=== PATIENT | female | born 1995 | race American Indian/Alaskan Native ===

== ENCOUNTER 2016-12-24 04:42 | Emergency (ER) | payer OTHER ==
[2016-12-24 05:45] LABS: Urine Drugs of Abuse Note Disclamer
[2016-12-24 05:58] LABS: Basophils % (Auto) 0.6 % (0.0-1.8); Eosinophils % (Auto) 3.3 % (0.0-4.3); Hematocrit 35.8 % (30.3-42.9); Hemoglobin 11.7 gm/dl (10.1-14.3); Mean Corpuscular HGB Conc 33 % (30-34); Mean Corpuscular Hemoglobin 27 pg (28-32); Mean Corpuscular Volume 84 fl (79-97); Platelet Count 186 K/mm3 (140-440); Red Blood Count 4.28 M/mm3 (3.65-5.03); Red Cell Distribution Width 14.5 % (13.2-15.2); White Blood Count 4.5 K/mm3 (4.5-11.0)
[2016-12-24 06:11] LABS: Anion Gap 14 mmol/L; Blood Urea Nitrogen 21 mg/dL (7-17); Calcium 9.5 mg/dL (8.4-10.2); Carbon Dioxide 27 mmol/L (22-30); Chloride 103.1 mmol/L (98-107); Glucose 91 mg/dL (65-100); Potassium 3.6 mmol/L (3.6-5.0); Sodium 140 mmol/L (137-145)
[2016-12-24 06:13] LABS: Bacteria,Urine 2+ /HPF (Negative); Bilirubin,Urine NEG (Negative); Blood,Urine NEG (Negative); Ketones,Urine NEG (Negative); Leukocyte Esterase,Urine NEG (Negative); Nitrite,Urine NEG (Negative); Protein,Urine <15 mg/dL mg/dL (Negative); Urobilinogen,Urine < 2.0 mg/dL (<2.0)
[2016-12-24] MEDS ORDERED: NACL 0.9% 1000 ML 1,000 ML IV ONE (08:17)
[2016-12-24 08:41] VITALS: BP 95/57
--- NOTE | 2016-12-24 09:08 | Emergency Department Report ---
ED Chest Pain HPI - General Chief Complaint: Chest Pain Stated Complaint: CHEST PAIN Time Seen by Provider: 12/24/16 09:02 Source: patient Mode of arrival: Carried (Peds) Limitations: No Limitations - History of Present Illness Initial Comments: This is a 21-year-old female well-nourished with nontoxic or ill in appearance but complains of chest pain status post smoking cigarettes and marijuana this morning at 0200. Patient stated she came around 30 minutes later developed a chest pain. Patient stated she was concerned and was was brought into the hospital. Patient describes chest pain at 0200 as aching with a level of 4/10. Patient currently states chest pain has subsided to a 1 out of 10. Patient states describes chest pain currently as slightly aching that is intermittent. Patient denies any fever, chills, stiff neck, nausea, vomiting, numbness, tingling, shortness of breath, difficulty breathing, diaphoresis, dizziness, blurry vision. Patient denies feelings of tightness in the chest. Patient denies radiation of chest pain. Patient denies any allergies. Denies past medical history. Patient denies any recent surgeries. Denies respiratory use. Denies calf tenderness or pain. MD Complaint: chest pain -: Gradual, days(s) (1) Onset: associated with drug use Pain Location: substernal Pain Radiation: none Severity: mild Severity scale (0 -10): 1 Quality: aching Consistency: intermittent Improves With: nothing Worsens With: nothing re: denies: nausea, vomting, diaphoresis, dyspnea, sense of impending doom Other Symptoms: denies: cough, fever, syncope, rash, acid taste in mouth, leg swelling, palpitations, burping Treatments Prior to Arrival: none Aspirin use within the Past 7 Days: (0) No - Related Data On Oral Contraceptives: No (as per patient) Home Medications Medication Instructions Recorded Confirmed Last Taken No Known Home Medications [No 12/24/16 12/24/16 Unknown Reported Home Medications] Allergies Allergy/AdvReac Type Severity Reaction Status Date / Time kiwi Allergy Hives Verified 12/24/16 05:16 Heart Score - HEART Score History: Slightly suspicious EKG: Non-specific Age: < 45 Risk factors: No known risk factors Troponin: < normal limit HEART Score: 1 ED Review of Systems ROS: Stated complaint: CHEST PAIN Other details as noted in HPI Constitutional: denies: chills, fever Eyes: denies: eye pain, eye discharge, vision change ENT: denies: ear pain, throat pain Respiratory: denies: cough, shortness of breath, wheezing Cardiovascular: chest pain (aching). denies: palpitations, dyspnea on exertion , orthopnea, edema, syncope, paroxysmal nocturnal dyspnea Endocrine: no symptoms reported Gastrointestinal: denies: abdominal pain, nausea, diarrhea Genitourinary: denies: urgency, dysuria, discharge Musculoskeletal: denies: back pain, joint swelling, arthralgia Skin: denies: rash, lesions Neurological: denies: headache, weakness, paresthesias Psychiatric: denies: anxiety, depression Hematological/Lymphatic: denies: easy bleeding, easy bruising ED Past Medical Hx - Past Medical History Previous Medical History?: No - Surgical History Past Surgical History?: No - Social History Smoking Status: Current Every Day Smoker Substance Use Type: Marijuana - Medications Home Medications: Home Medications Medication Instructions Recorded Confirmed Last Taken Type No Known Home Medications [No 12/24/16 12/24/16 Unknown History Reported Home Medications] ED Physical Exam - General Limitations: No Limitations General appearance: alert, in no apparent distress - Head Head exam: Present: atraumatic, normocephalic, normal inspection - Eye Eye exam: Present: normal appearance, PERRL, EOMI. Absent: scleral icterus, conjunctival injection, nystagmus, periorbital swelling, periorbital tenderness Pupils: Present: normal accommodation - ENT ENT exam: Present: normal exam, normal orophraynx, mucous membranes moist, TM's normal bilaterally, normal external ear exam - Neck Neck exam: Present: normal inspection, full ROM. Absent: tenderness, meningismus, lymphadenopathy, thyromegaly - Respiratory Respiratory exam: Present: normal lung sounds bilaterally. Absent: respiratory distress, wheezes, rales, rhonchi, stridor - Cardiovascular Cardiovascular Exam: Present: regular rate, normal rhythm, normal heart sounds. Absent: bradycardia, tachycardia, irregular rhythm, systolic murmur, diastolic murmur, rubs, gallop - GI/Abdominal GI/Abdominal exam: Present: soft, normal bowel sounds. Absent: distended, tenderness, guarding, rebound, rigid - Rectal Rectal exam: Present: deferred - Extremities Exam Extremities exam: Present: normal inspection, full ROM, normal capillary refill. Absent: tenderness, pedal edema, joint swelling, calf tenderness - Back Exam Back exam: Present: normal inspection, full ROM. Absent: tenderness, CVA tenderness (R), CVA tenderness (L), muscle spasm, paraspinal tenderness, vertebral tenderness, rash noted - Neurological Exam Neurological exam: Present: alert, oriented X3, CN II-XII intact, normal gait - Psychiatric Psychiatric exam: Present: normal affect, normal mood - Skin Skin exam: Present: warm, dry, intact, normal color. Absent: rash - Other Other exam information: Denies tenderness to palpitation of the chest. No tenderness to palpation of the midsternal. Nonreproducible. ED Course Vital Signs 12/24/16 12/24/16 05:04 08:40 Temperature 99.2 F Pulse Rate 74 81 Respiratory 12 16 Rate Blood Pressure 101/63 Blood Pressure 101/63 95/57 [Left] O2 Sat by Pulse 100 99 Oximetry - Reevaluation(s) Reevaluation #1: 12/24/16 09:11 Patient is eating with father at bedside. Patient is not in acute distress noted. Reevaluation #2: 12/24/16 09:53 Patient is sitting and watching TV. no signs of distress noted. Reevaluation #3: 12/24/16 09:54 Patient and father has been informed about importance of f/u with tool and die repair in 24 hours for abnormal EKG. - Consultations Consultation #1: 12/24/16 09:55 Dr. Brown has been consulted about patient and lab/EKG findings. Agrees to d/c plan of care. SAL score - Sal Score Age > 65: (0) No Aspirin use within the Past 7 Days: (0) No 3 or more CAD Risk Factors: (0) No 2 or more Angina events in past 24 hrs: (0) No Known CAD with more than 50% Stenosis: (0) No Elevated Cardiac Markers: (0) No ST Deviation Greater than 0.5mm: (0) No SAL Score: 0 ED Medical Decision Making - Lab Data Result diagrams: 12/24/16 05:37 12/24/16 05:37 - Medical Decision Making Ed course: This is a 21-year-old female that presents chest pain times one day. 1- EKG, CBC, BMP, troponin, test, and drug panel has been obtained. Positive for marjuana 2- a second Troponin and EKG has been obtained as well with no chagnes. 3- Patient was instructed to f/u with a tool and die repair/primary care doctor and 24 hours. 4- at time time of discharge, the patient does not seem toxic or ill in appearance. No acute signs of distress noted. Patient agrees to discharge treatment plan of care. No further questions noted by the patient. Critical care attestation.: If time is entered above; I have spent that time in minutes in the direct care of this critically ill patient, excluding procedure time. ED Disposition Clinical Impression: Costochondritis, Abnormal EKG Chest pain Qualifiers: Chest pain type: unspecified Qualified Code(s): R07.9 - Chest pain, unspecified Disposition: TO HOME OR SELFCARE Is pt being admited?: No Does the pt Need Aspirin: No Condition: Stable Instructions: Chest Pain (ED), Costochondritis (ED) Additional Instructions: Follow-up with her tool and die repair last primary care doctor in 24 hours or if symptoms of chest pain, shortness of breath, stiff neck, fever, chills, or difficulty breathing return back to emergency room as soon as possible. Referrals: PRIMARY CAREMD [Primary Care Provider] - 3-5 Days [facility] [Outside] - 3-5 Days [facility] [Outside] - 3-5 Days JORGE EARLY JR, MD [Staff Physician] - 3-5 Days STIVEN SCHAFFER MD [Staff Physician] - 24 Hours Forms: Work/School Release Form(ED)
[2016-12-24] MEDS ORDERED: TORADOL IV ONE (09:13)
--- NOTE | 2016-12-24 09:22 | XRay Report ---
FINAL REPORT PROCEDURE: XR CHEST ROUTINE 2V TECHNIQUE: PA and lateral chest radiographs were obtained. CPT 54124 HISTORY: cp COMPARISON: No prior studies are available for comparison. FINDINGS: Heart: Normal. Mediastinum/Vessels: Normal. Lungs/Pleural space: Normal. Bony thorax: No acute osseous abnormality. Other: IMPRESSION: Normal examination.
== END 2016-12-24 11:25 | disposition home or self-care (01) ==
LOC: ED 04:42
DX: M94.0 Chondrocostal junction syndrome [Tietze] (principal); R94.31 Abnormal electrocardiogram [ECG] [EKG]; F12.10 Cannabis abuse, uncomplicated; F17.200 Nicotine dependence, unspecified, uncomplicated; Z91.018 Allergy to other foods
CPT/HCPCS: 36415; 71020; 80048; 80307; 81001; 81025; 84484; 85025; 93005; 93010; 96360; 99285; J7030

== ENCOUNTER 2019-02-16 09:14 | Emergency (ER) | payer SELFPAY ==
[2019-02-16 09:22] VITALS: BP 117/75
--- NOTE | 2019-02-16 09:41 | Emergency Department Report ---
ED Anxiety HPI - General Chief Complaint: Anxiety Stated Complaint: ANXIOUS Time Seen by Provider: 02/16/19 09:31 Source: patient Mode of arrival: Ambulatory Limitations: No Limitations - History of Present Illness Initial Comments: Patient is a 23-year-old female that presented to emergency room with complaints of anxiety. Patient states last night she took ecstasy at 2 AM and again having anxiety. Patient states she did not do any other drugs. Patient denies cocaine use. Patient states also having mood swings. Patient denies suicidal or homici tyson ideations. Patient denies hallucinations. pt on cycle now,. MD Complaint: anxiety -: Sudden Place: home Previous History of Same: No Severity: severe Quality: constant Provoking factors: other Improves With: rest Worsens With: thinking about event Associated symptoms: denies other symptoms. denies: chest pain, shortness of breath, palpitations, diaphoresis, confusion, cough, fever/chills, headaches, anorexia, malaise, nausea/vomiting, rash, seizure, syncope, weakness - Related Data Home Medications: Previous Rx's Medication Instructions Recorded Last Taken Type Sulfamethoxazole/Trimethoprim 1 each PO BID 10 Days #20 tablet 02/16/19 Unknown Rx [Bactrim DS TAB] Allergies/Adverse Reactions: Allergies Allergy/AdvReac Type Severity Reaction Status Date / Time kiwi Allergy Hives Verified 12/24/16 05:16 ED Review of Systems ROS: Stated complaint: ANXIOUS Other details as noted in HPI Constitutional: denies: chills, fever Eyes: denies: eye pain, eye discharge, vision change ENT: denies: ear pain, throat pain Respiratory: denies: cough, shortness of breath, wheezing Cardiovascular: denies: chest pain, palpitations Endocrine: no symptoms reported Gastrointestinal: denies: abdominal pain, nausea, diarrhea Genitourinary: denies: urgency, dysuria, discharge Musculoskeletal: denies: back pain, joint swelling, arthralgia Skin: denies: rash, lesions Neurological: denies: headache, weakness, paresthesias Psychiatric: anxiety. denies: depression Hematological/Lymphatic: denies: easy bleeding, easy bruising ED Past Medical Hx - Past Medical History Previous Medical History?: No - Surgical History Past Surgical History?: No - Family History Family history: no significant - Social History Smoking Status: Current Every Day Smoker Substance Use Type: None, Marijuana - Medications Home Medications: Home Medications Medication Instructions Recorded Confirmed Last Taken Type Sulfamethoxazole/Trimethoprim 1 each PO BID 10 Days #20 tablet 02/16/19 Unknown Rx [Bactrim DS TAB] ED Physical Exam - General Limitations: No Limitations General appearance: alert, in no apparent distress - Head Head exam: Present: atraumatic, normocephalic - Eye Eye exam: Present: normal appearance, PERRL, EOMI Pupils: Present: normal accommodation - ENT ENT exam: Present: mucous membranes moist - Neck Neck exam: Present: normal inspection - Respiratory Respiratory exam: Present: normal lung sounds bilaterally. Absent: respiratory distress, wheezes, rales - Cardiovascular Cardiovascular Exam: Present: regular rate, normal rhythm. Absent: systolic murmur, diastolic murmur, rubs, gallop - GI/Abdominal GI/Abdominal exam: Present: soft, normal bowel sounds. Absent: distended, tenderness, guarding - Rectal Rectal exam: Present: deferred - Extremities Exam Extremities exam: Present: normal inspection, full ROM - Back Exam Back exam: Present: normal inspection, full ROM - Neurological Exam Neurological exam: Present: alert, oriented X3, CN II-XII intact, normal gait. Absent: motor sensory deficit - Psychiatric Psychiatric exam: Present: normal affect, normal mood - Skin Skin exam: Present: warm, dry, intact, normal color. Absent: rash ED Course Vital Signs 02/16/19 02/16/19 02/16/19 09:20 09:41 11:35 Temperature 98.3 F Pulse Rate 120 H 90 76 Respiratory 16 Rate Blood Pressure 117/75 O2 Sat by Pulse 100 98 Oximetry - Reevaluation(s) Reevaluation #1: Initial evaluation done and medical screening done, no emergency medical condition noted. Patient will have labs done 02/16/19 09:48 Reevaluation #2: Discussed all results with patient. I discussed plan of care with patient. Patient agrees with plan of care. Patient will be discharged home. Patient stable for discharge. Patient given discharge instructions. Patient voiced understanding of discharge instructions 02/16/19 11:05 ED Medical Decision Making - Lab Data Result diagrams: 02/16/19 10:03 02/16/19 10:03 - Medical Decision Making pt is a 23-year-old female that presents emergency room with acute anxiety. Patient appears to be having a drug reaction due to a illicit drugs she took last night. Patient's labs unremarkable except for a UTI. TSH is normal. Blood count normal. Chemistry normal. Patient stable for discharge. Patient will be discharged home. Patient given antibiotic prescription - Differential Diagnosis anxiety. Drug reaction. Critical care attestation.: If time is entered above; I have spent that time in minutes in the direct care of this critically ill patient, excluding procedure time. ED Disposition Clinical Impression: Anxiety Drug reaction Qualifiers: Encounter type: initial encounter Qualified Code(s): T50.905A - Adverse effect of unspecified drugs, medicaments and biological substances, initial encounter UTI (urinary tract infection) Qualifiers: Urinary tract infection type: acute cystitis Hematuria presence: with hematuria Qualified Code(s): N30.01 - Acute cystitis with hematuria Disposition: TO HOME OR SELFCARE Is pt being admited?: No Does the pt Need Aspirin: No Condition: Stable Instructions: Urinary Tract Infection in Women (ED), Polysubstance Abuse (ED), Anxiety (ED) Additional Instructions: Patient follow up with primary care in 2-3 days. Patient to return to ER if condition worsens. Patient take medicines as directed. Patient to avoid drug use. Patient increase water. Patient to rest. Prescriptions: Sulfamethoxazole/Trimethoprim [Bactrim DS TAB] 1 each PO BID 10 Days #20 tablet Referrals: PRIMARY CARE, [Primary Care Provider] - 2-3 Days Time of Disposition: 11:08
[2019-02-16 10:14] LABS: Hematocrit 41.2 % (30.3-42.9); Hemoglobin 13.7 gm/dl (10.1-14.3); Mean Corpuscular HGB Conc 33 % (30-34); Mean Corpuscular Volume 87 fl (79-97); Platelet Count 218 K/mm3 (140-440); Red Blood Count 4.72 M/mm3 (3.65-5.03); Red Cell Distribution Width 14.2 % (13.2-15.2)
[2019-02-16 10:25] LABS: Bilirubin,Urine NEG (Negative); Blood,Urine LG (Negative); Color,Urine Straw (Yellow); Mucus,Urine FEW /HPF; Protein,Urine <15 mg/dL mg/dL (Negative); Urobilinogen,Urine < 2.0 mg/dL (<2.0)
[2019-02-16 10:34] LABS: Benzodiazepines Screen,Urine PRESUMPTIVE NEGATIVE; Cocaine Screen,Urine PRESUMPTIVE NEGATIVE; Methadone Screen,Urine PRESUMPTIVE NEGATIVE; Opiate Screen,Urine PRESUMPTIVE NEGATIVE
[2019-02-16 10:39] LABS: Alanine Aminotransferase 18 units/L (7-56); Albumin 4.6 g/dL (3.9-5); BUN/Creatinine Ratio 19; Blood Urea Nitrogen 15 mg/dL (7-17); Calcium 9.9 mg/dL (8.4-10.2); Hemolysis Index 21
[2019-02-16 10:42] LABS: HCG Qualitative,Urine Negative (Negative)
[2019-02-16 10:49] LABS: Amphetamine Screen,Urine PRESUMPTIVE POSITIVE; Cannabinoid Screen,Urine PRESUMPTIVE POSITIVE
== END 2019-02-16 11:42 | disposition home or self-care (01) ==
LOC: ED 09:14
DX: T50.905A Adverse effect of unspecified drugs, medicaments and biological substances, initial encounter (principal); F41.9 Anxiety disorder, unspecified; N39.0 Urinary tract infection, site not specified; F17.200 Nicotine dependence, unspecified, uncomplicated; F12.10 Cannabis abuse, uncomplicated; Z91.018 Allergy to other foods; Y92.89 Other specified places as the place of occurrence of the external cause
CPT/HCPCS: 36415; 80053; 80307; 81001; 81025; 84443; 85027

== ENCOUNTER 2019-04-01 19:06 | Emergency (ER) | payer SELFPAY ==
--- NOTE | 2019-04-01 19:47 | Event Note ---
ED Screening Note Date of service: 04/01/19 Time: 19:46 ED Screening Note: 23 y o f presents with cough and congestion x 4 days lmp: on bC This initial assessment/diagnostic orders/clinical plan/treatment(s) is/are subject to change based on patients health status, clinical progression and re-assessment by fellow clinical providers in the ED. Further treatment and workup at subsequent clinical providers discretion. Patient/guardian urged not to elope from the ED as their condition may be serious if not clinically assessed and managed. Initial orders include: cxr
[2019-04-01 19:48] VITALS: BP 102/70
--- NOTE | 2019-04-01 20:20 | XRay Report ---
CHEST PA AND LATERAL VIEWS INDICATION: MAIN: cough cough for 3-4 days. Occasionally productive. burning to throat intially. Nonlabored. MAEW . Denies fever.. COMPARISON: 11/01/2018 FINDINGS: Support devices: None Heart: Stable. Lungs/Pleura: No acute pulmonary or pleural findings. IMPRESSION: 1. No significant change. Signer Name: Tico Christianson MD Signed: 04/01/2019 8:16 PM Workstation Name: [id number]
--- NOTE | 2019-04-01 21:19 | Emergency Department Report ---
- General Chief Complaint: Upper Respiratory Infection Stated Complaint: FLU LIKE SYM Time Seen by Provider: 04/01/19 19:46 Source: patient Mode of arrival: Ambulatory Limitations: No Limitations - History of Present Illness Initial Comments: 23-year-old female presents to ED with 4 day history of cough. Patient also reports a runny nose. Patient states she is concerned she may have pneumonia to a coworker about her symptoms. Patient denies any fever or shortness of breath. MD Complaint: cough -: days(s) (4) Severity: mild Consistency: constant Improves With: nothing Worsens With: nothing Associated Symptoms: cough. denies: fever, chills, myalgias, headache, sore throat, chest pain, shortness of breath, nausea, vomiting, diarrhea Treatments Prior to Arrival: "cold medicine" - Related Data Previous Rx's Medication Instructions Recorded Last Taken Type Sulfamethoxazole/Trimethoprim 1 each PO BID 10 Days #20 tablet 02/16/19 Unknown Rx [Bactrim DS TAB] Benzonatate [Tessalon Perles] 100 mg PO Q8HR PRN #20 capsule 04/01/19 Unknown Rx Naproxen [Naprosyn] 500 mg PO BID #20 tablet 04/01/19 Unknown Rx Allergies Allergy/AdvReac Type Severity Reaction Status Date / Time kiwi Allergy Hives Verified 12/24/16 05:16 ED Review of Systems ROS: Stated complaint: FLU LIKE SYM Other details as noted in HPI Comment: All other systems reviewed and negative Constitutional: denies: chills, fever ENT: congestion Respiratory: cough. denies: shortness of breath, wheezing Cardiovascular: denies: chest pain ED Past Medical Hx - Social History Smoking Status: Current Every Day Smoker Substance Use Type: None, Marijuana - Medications Home Medications: Home Medications Medication Instructions Recorded Confirmed Last Taken Type Sulfamethoxazole/Trimethoprim 1 each PO BID 10 Days #20 tablet 02/16/19 Unknown Rx [Bactrim DS TAB] Benzonatate [Tessalon Perles] 100 mg PO Q8HR PRN #20 capsule 04/01/19 Unknown Rx Naproxen [Naprosyn] 500 mg PO BID #20 tablet 04/01/19 Unknown Rx ED Physical Exam - General Limitations: No Limitations General appearance: alert, in no apparent distress - Head Head exam: Present: atraumatic, normocephalic - Eye Eye exam: Present: normal appearance, PERRL, EOMI - ENT ENT exam: Present: mucous membranes moist - Neck Neck exam: Present: normal inspection - Respiratory Respiratory exam: Present: normal lung sounds bilaterally. Absent: respiratory distress, wheezes, rales, rhonchi - Cardiovascular Cardiovascular Exam: Present: regular rate, normal rhythm - GI/Abdominal GI/Abdominal exam: Present: soft. Absent: distended - Extremities Exam Extremities exam: Present: normal inspection - Neurological Exam Neurological exam: Present: alert, oriented X3 - Psychiatric Psychiatric exam: Present: normal affect, normal mood - Skin Skin exam: Present: warm, dry, intact, normal color. Absent: rash ED Course Vital Signs 04/01/19 19:47 Temperature 98.0 F Pulse Rate 70 Respiratory 16 Rate Blood Pressure 102/70 O2 Sat by Pulse 98 Oximetry ED Medical Decision Making - Radiology Data Radiology results: report reviewed, image reviewed - Medical Decision Making - vital normal - CXR nml - no resp distress - outpt f/u advised; return precautions given - Differential Diagnosis URI, pneumonia, flu Critical care attestation.: If time is entered above; I have spent that time in minutes in the direct care of this critically ill patient, excluding procedure time. ED Disposition Clinical Impression: Upper respiratory infection Disposition: DC-01 TO HOME OR SELFCARE Is pt being admited?: No Condition: Stable Instructions: Cold Symptoms (ED), Upper Respiratory Infection (ED) Referrals: PRIMARY CARE, [Referring] - 3-5 Days [facility] [Provider Group] - 3-5 Days Time of Disposition: 21:19
== END 2019-04-01 22:01 | disposition home or self-care (01) ==
LOC: ED 19:06
DX: J06.9 Acute upper respiratory infection, unspecified (principal); F17.200 Nicotine dependence, unspecified, uncomplicated; F12.10 Cannabis abuse, uncomplicated; Z79.899 Other long term (current) drug therapy; Z91.018 Allergy to other foods
CPT/HCPCS: 71046

== ENCOUNTER 2019-08-26 13:53 | Emergency (ER) | payer OTHER ==
[2019-08-26 13:57] VITALS: BP 124/79
--- NOTE | 2019-08-26 14:00 | Emergency Department Report ---
Blank Doc - Documentation Documentation: 24-year-old female that presents with URI symptoms and fever. This initial assessment/diagnostic orders/clinical plan/treatment(s) is/are subject to change based on patient's health status, clinical progression and re- assessment by fellow clinical providers in the ED. Further treatment and workup at subsequent clinical providers discretion. Patient/guardians urged not to elope from the ED as their condition may be serious if not clinically assessed and managed. Initial orders include: 1- Patient sent to [facility] for further evaluation and treatment 2- cxr
--- NOTE | 2019-08-26 14:21 | Emergency Department Report ---
Minor Respiratory - HPI Chief Complaint: Upper Respiratory Infection Stated Complaint: FLU SYM Time Seen by Provider: 08/26/19 13:59 Duration: 3 Days Pain Location: Chest Severity: mild Minor Respiratory: Yes Rhinorrhea, Yes Able to Tolerate Fluids, No Sore Throat, No Ear Pain, No Cough, No Sick Contacts, No Hemoptysis, No Chest Pain, No Shortness of Breath, No Fever Other History: Patient is a 24-year-old -German female who comes to the ER today because she dates an older man that may have given her coronavirus because he is old. She states the do not you know that all people are dying of this virus. Patient denies any travel. She denies that her boyfriend has had any travel. She states that he has not been on an airplane in years. He was born and raised in [place]. Patient's mother states that she is a hypochondriac. However, the patient is concerned so she comes to the ER to be checked. XRAY as ordered by the RUFINA in triage is noted to be normal. Vital signs are stable there is no fever. Patient is ambulatory and nontoxic. ED Review of Systems ROS: Stated complaint: FLU SYM Other details as noted in HPI Comment: All other systems reviewed and negative ED Past Medical Hx - Past Medical History Previous Medical History?: No - Surgical History Past Surgical History?: No - Family History Family history: no significant - Social History Smoking Status: Current Every Day Smoker Substance Use Type: Marijuana - Medications Home Medications: Home Medications Medication Instructions Recorded Confirmed Last Taken Type Sulfamethoxazole/Trimethoprim 1 each PO BID 10 Days #20 tablet 02/16/19 Unknown Rx [Bactrim DS TAB] Benzonatate [Tessalon Perles] 100 mg PO Q8HR PRN #20 capsule 04/01/19 Unknown Rx Naproxen [Naprosyn] 500 mg PO BID #20 tablet 04/01/19 Unknown Rx Minor Respiratory Exam - Exam General: Vital signs noted. No distress. Alert and acting appropriately. HEENT: Yes Moist Mucous Membranes, No Pharyngeal Erythema, No Pharyngeal Exudates, No Rhinorrhea, No Conjuctival Injection, No Frontal Tenderness, No Maxillary Tenderness Ear: Neither TM Bulge, Neither TM Erythema, Neither EAC Pain, Neither EAC Discharge Neck: Yes Supple, No Adenopathy Lungs: Yes Good Air Exchange, No Wheezes, No Ronchi, No Stridor, No Cough, No Labored Respirations, No Retractions, No Use of Accessory Muscles, No Other Abnormal Lung Sounds Heart: Yes Regular, No Murmur Abdomen: Yes Normal Bowel Sounds, No Tenderness, No Peritoneal Signs Skin: No Rash, No Edema Neurologic: Alert and oriented, no deficits. Musculoskeletal: Unremarkable. ED Course Vital Signs 08/26/19 13:56 Temperature 97.9 F Pulse Rate 89 Respiratory 16 Rate Blood Pressure 124/79 [Left] O2 Sat by Pulse 99 Oximetry ED Medical Decision Making - Radiology Data Radiology results: report reviewed, image reviewed interpreted by me: UDAY LIZAMA - Medical Decision Making SIMPLE URI DC HOME WITH DC POC AND PCP FOLLOW UP Vital Signs 08/26/19 13:56 Temperature 97.9 F Pulse Rate 89 Respiratory 16 Rate Blood Pressure 124/79 [Left] O2 Sat by Pulse 99 Oximetry - Differential Diagnosis URI Critical care attestation.: If time is entered above; I have spent that time in minutes in the direct care of this critically ill patient, excluding procedure time. ED Disposition Clinical Impression: Common cold Disposition: DC-01 TO HOME OR SELFCARE Is pt being admited?: No Does the pt Need Aspirin: No Condition: Stable Instructions: Cold Symptoms (ED) Additional Instructions: OTC SYMPTOM RELIEF WASH YOUR HAND FOLLOW UP PCP IN 1 WEEK IF WORSENING REFERRAL BELOW Referrals: VERONICA OROZCO MD [Staff Physician] - 3-5 Days Time of Disposition: 14:20
--- NOTE | 2019-08-26 16:01 | XRay Report ---
CHEST 2 VIEWS INDICATION: cough. COMPARISON: 04/01/2019 FINDINGS: Support devices: None. Heart: Within normal limits. Lungs/pleura: No acute air space or interstitial disease. No pneumothorax. Additional findings: None. IMPRESSION: No acute findings. Signer Name: Gwyn Knowles Jr, MD Signed: 08/26/2019 3:56 PM Workstation Name: [id number]
== END 2019-08-26 16:00 | disposition home or self-care (01) ==
LOC: ED 13:53
DX: J00 Acute nasopharyngitis [common cold] (principal); F17.200 Nicotine dependence, unspecified, uncomplicated; F12.90 Cannabis use, unspecified, uncomplicated; Z91.018 Allergy to other foods; Z79.899 Other long term (current) drug therapy
CPT/HCPCS: 71046; 99283

== ENCOUNTER 2020-07-14 22:20 | Emergency (ER) | payer SELFPAY ==
[2020-07-14 22:59] VITALS: BP 100/70
--- NOTE | 2020-07-14 23:15 | Emergency Department Report ---
ED ENT HPI - General Chief complaint: Dental/Oral Stated complaint: ABSCESS IN MOUTH Time Seen by Provider: 07/14/20 23:05 Source: patient Mode of arrival: Ambulatory Limitations: No Limitations - History of Present Illness Initial comments: 25-year-old female presents to the emergency department complaining of pain to the left lower gingival region with a suspicion of the infection for the past several days. Pain is dull and throbbing worse with eating and chewing but reports no odynophagia or dysphagia. Ports no fever, chills, sweats, no hemopty sis no hematemesis Quality: dull Consistency: constant Worsens with: eating Context- Dental: history of dental caries, poor dental care - Related Data Previous Rx's Medication Instructions Recorded Last Taken Type Sulfamethoxazole/Trimethoprim 1 each PO BID 10 Days #20 tablet 02/16/19 Unknown Rx [Bactrim DS TAB] Benzonatate [Tessalon Perles] 100 mg PO Q8HR PRN #20 capsule 04/01/19 Unknown Rx Naproxen [Naprosyn] 500 mg PO BID #20 tablet 04/01/19 Unknown Rx Amoxicillin [Amoxicillin TAB] 875 mg PO BID #20 tablet 07/14/20 Unknown Rx Chlorhexidine Mouthwash [Peridex] 15 ml MM BID #473 bottle 07/14/20 Unknown Rx Allergies Allergy/AdvReac Type Severity Reaction Status Date / Time kiwi Allergy Hives Verified 12/24/16 05:16 ED Dental HPI - General Chief complaint: Dental/Oral Stated complaint: ABSCESS IN MOUTH Time Seen by Provider: 07/14/20 23:05 Source: patient Mode of arrival: Ambulatory Limitations: No Limitations - Related Data Previous Rx's Medication Instructions Recorded Last Taken Type Sulfamethoxazole/Trimethoprim 1 each PO BID 10 Days #20 tablet 02/16/19 Unknown Rx [Bactrim DS TAB] Benzonatate [Tessalon Perles] 100 mg PO Q8HR PRN #20 capsule 04/01/19 Unknown Rx Naproxen [Naprosyn] 500 mg PO BID #20 tablet 04/01/19 Unknown Rx Amoxicillin [Amoxicillin TAB] 875 mg PO BID #20 tablet 07/14/20 Unknown Rx Chlorhexidine Mouthwash [Peridex] 15 ml MM BID #473 bottle 07/14/20 Unknown Rx Allergies Allergy/AdvReac Type Severity Reaction Status Date / Time kiwi Allergy Hives Verified 12/24/16 05:16 ED Review of Systems ROS: Stated complaint: ABSCESS IN MOUTH Other details as noted in HPI Comment: All other systems reviewed and negative ED Past Medical Hx - Past Medical History Previous Medical History?: Yes Additional medical history: FACTOR V - Social History Smoking Status: Never Smoker Substance Use Type: Marijuana - Medications Home Medications: Home Medications Medication Instructions Recorded Confirmed Last Taken Type Sulfamethoxazole/Trimethoprim 1 each PO BID 10 Days #20 tablet 02/16/19 Unknown Rx [Bactrim DS TAB] Benzonatate [Tessalon Perles] 100 mg PO Q8HR PRN #20 capsule 04/01/19 Unknown Rx Naproxen [Naprosyn] 500 mg PO BID #20 tablet 04/01/19 Unknown Rx Amoxicillin [Amoxicillin TAB] 875 mg PO BID #20 tablet 07/14/20 Unknown Rx Chlorhexidine Mouthwash [Peridex] 15 ml MM BID #473 bottle 07/14/20 Unknown Rx ED Physical Exam - General Limitations: No Limitations General appearance: alert, in no apparent distress - Head Head exam: Present: atraumatic, normocephalic - Eye Eye exam: Present: normal appearance - ENT ENT exam: Present: mucous membranes moist, other (Several dental caries are noted with with gingiva irritation widespread and excessive buildup noted.) - Neck Neck exam: Present: normal inspection - Respiratory Respiratory exam: Present: normal lung sounds bilaterally. Absent: respiratory distress - Cardiovascular Cardiovascular Exam: Present: regular rate, normal rhythm. Absent: systolic murmur, diastolic murmur, rubs, gallop - GI/Abdominal GI/Abdominal exam: Present: soft, normal bowel sounds - Extremities Exam Extremities exam: Present: normal inspection - Back Exam Back exam: Present: normal inspection - Neurological Exam Neurological exam: Present: alert, oriented X3 - Psychiatric Psychiatric exam: Present: normal affect, normal mood - Skin Skin exam: Present: warm, dry, intact, normal color. Absent: rash ED Course Vital Signs 07/14/20 22:57 Temperature 98.0 F Pulse Rate 86 Respiratory 18 Rate Blood Pressure 100/70 O2 Sat by Pulse 100 Oximetry Critical care attestation.: If time is entered above; I have spent that time in minutes in the direct care of this critically ill patient, excluding procedure time. ED Disposition Clinical Impression: Gingivitis due to dental plaque, Dental caries Disposition: DC-01 TO HOME OR SELFCARE Is pt being admited?: No Does the pt Need Aspirin: No Condition: Stable Instructions: Preventive Dental Care, Adult, Dental Sealants, Trench Mouth, Diet and Dental Disease Prescriptions: Amoxicillin [Amoxicillin TAB] 875 mg PO BID #20 tablet Chlorhexidine Mouthwash [Peridex] 15 ml MM BID #473 bottle Referrals: [facility] [Outside] - 3-5 Days
== END 2020-07-15 | disposition home or self-care (01) ==
LOC: ED 22:20
DX: K05.10 Chronic gingivitis, plaque induced (principal); K02.9 Dental caries, unspecified; F12.90 Cannabis use, unspecified, uncomplicated; Z91.018 Allergy to other foods; Z79.899 Other long term (current) drug therapy
CPT/HCPCS: 99282